=== PATIENT | female | born 1995 | race Caucasian/White ===

== ENCOUNTER 2017-10-18 09:42 | Emergency (ER) | payer MEDICAID ==
[~2017-10-18] VITALS: Ht 157.5 cm; Wt 54.5 kg
[2017-10-18] MEDS ORDERED: METOCLOPRAMIDE 5 MG/ML, 2ML IVPush PRN (10:00)
[2017-10-18] MEDS ORDERED: ONDANSETRON 2MG/ML, 2ML IVPush ONE (10:00)
[2017-10-18] MEDS ORDERED: FAMOTIDINE 20 MG/2 ML IVP ONE (10:00)
[2017-10-18] MEDS ORDERED: SODIUM CHLORIDE 0.9% 1,000ML IVBOLUS ONE (10:00)
[2017-10-18] MEDS ORDERED: PANTOPRAZOLE 40 MG IV IVP ONE (10:00)
[2017-10-18] MEDS ORDERED: BUPR300T49 PO (10:08)
[2017-10-18] MEDS ORDERED: FLUO10CA13 PO (10:09)
[2017-10-18] MEDS ORDERED: ONDANSETRON 2MG/ML, 2ML ONE (10:12)
[2017-10-18] MEDS ORDERED: METOCLOPRAMIDE 5 MG/ML, 2ML ONE (10:12)
[2017-10-18] MEDS ORDERED: FAMOTIDINE 20 MG/2 ML ONE (10:12)
[2017-10-18] MEDS ORDERED: PANTOPRAZOLE 40 MG IV ONE (10:12)
[2017-10-18 10:17] LABS: BASOPHILS # (AUTO) 0.08 x10^3/uL (0-0.1); BASOPHILS % (AUTO) 1 % (0-1); EOSINOPHILS # (AUTO) 0.01 x10^3/uL (0-0.4); EOSINOPHILS % (AUTO) 0 % (1-7); LYMPHOCYTES # (AUTO) 2.36 x10^3/uL (1-3.4); LYMPHOCYTES % (AUTO) 20 % (22-44); MD NO; MEAN CORPUSCULAR HEMOGLOBIN 30.8 pg (27.0-34.8); MEAN CORPUSCULAR HGB CONC 32.7 g/dL (32.4-35.8); MEAN CORPUSCULAR VOLUME 94.2 fL (80-100); MEAN PLATELET VOLUME 11.2 fL (7.4-10.4); MONOCYTES # (AUTO) 0.27 x10^3/uL (0.2-0.8); MONOCYTES % (AUTO) 2 % (2-9); NEUTROPHILS # (AUTO) 8.91 x10^3/uL (1.8-6.8); NEUTROPHILS % (AUTO) 77 % (42-75); PLATELET COUNT 256 x10^3/uL (130-400); RED CELL DISTRIBUTION WIDTH 14.1 % (9.6-15.2)
[2017-10-18 10:28] LABS: ALANINE AMINOTRANSFERASE 26 U/L (12-78); ALBUMIN 4.2 g/dL (3.4-5.0); ANION GAP 8 mmol/L (5-15); CALCIUM 9.4 mg/dL (8.5-10.1); CHLORIDE 107 mmol/L (98-107); CREATININE 1.02 mg/dL (0.55-1.02)
[2017-10-18] MEDS ORDERED: PLEASE ENTER ALLERGIES MC SCH (10:30)
[2017-10-18] MEDS ORDERED: PLEASE ENTER HEIGHT AND WEIGHT MC SCH (10:30)
[2017-10-18 10:31] LABS: ALKALINE PHOSPHATASE 56 U/L (45-117); BILIRUBIN,TOTAL 0.5 mg/dL (0.2-1.0); TOTAL PROTEIN 7.6 g/dL (6.4-8.2)
[2017-10-18 10:42] LABS: HCG UR SG 1.023 (1.003-1.030)
[2017-10-18 10:56] LABS: AMPHETAMINE SCREEN, URINE Negative (Negative); BARBITURATE SCREEN, URINE Negative (Negative); BENZODIAZEPINE SCREEN, URINE Negative (Negative); CANNABINOID SCREEN, URINE Positive (Negative); COCAINE SCREEN, URINE Negative (Negative); METHADONE SCREEN, URINE Negative (Negative); OPIATE SCREEN, URINE Negative (Negative)
[2017-10-18 12:19] VITALS: BP 113/66
[2017-10-18] MEDS ORDERED: ACETAMINOPHEN 325 MG TABLET PO ONE (12:30)
[2017-10-18] MEDS ORDERED: ACETAMINOPHEN 500 MG TABLET ONE (12:41)
== END 2017-10-18 12:56 | disposition home or self-care (01) ==
LOC: ED 10:46
DX: K29.20 Alcoholic gastritis without bleeding (principal); F10.10 Alcohol abuse, uncomplicated
CPT/HCPCS: 36415; 80053; 80307; 81025; 83690; 85025; 96361; 96374; 96375; 99285; C9113; J2405; J2765; J7030; S0028